=== PATIENT | male | born 1985 | race Caucasian/White ===

== ENCOUNTER 2019-08-14 12:24 | Emergency (ER) | payer OTHER ==
[~2019-08-14] VITALS: Ht 190.5 cm; Wt 125.2 kg
[2019-08-14 13:06] LABS: BASO % 0.3 % (0.0-1.0); EOS % 0.3 % (1.0-4.0); HEMATOCRIT 45.2 % (42.0-52.0); HEMOGLOBIN 15.1 g/dl (14.0-18.0); LYMPH # 3.1 10*3/uL (1.3-4.4); LYMPH % 25.9 % (27.0-41.0); MEAN CELL VOLUME 89.9 fl (80.0-94.0); MEAN CORPUSCULAR HGB CONC 33.4 g/dl (33.0-37.0); MEAN PLATELET VOLUME 9.6 fl (9.6-12.3); MONO # 0.9 10*3/uL (0.1-1.0); MONO % 7.2 % (3.0-9.0); NEUT # 7.9 10*3/uL (2.3-7.9); NEUT % 65.9 % (47.0-73.0); PLATELET COUNT AUTOMATED 318 10*3/uL (130-400); RED BLOOD COUNT 5.03 10*6/uL (4.50-5.90); RED CELL DISTRI WIDTH 13.2 % (0-14.5)
[2019-08-14 13:25] LABS: ALBUMIN 4.1 gm/dl (3.1-4.5); ALKALINE PHOSPHATASE 49 U/L (45-117); BUN 16 mg/dl (7-24); CHLORIDE 108 mmol/L (98-107); CREATININE 1.15 mg/dL (0.70-1.30); SGOT/AST 19 IU/L (3-35); SGPT/ALT 33 U/L (12-78); SODIUM 140 mmol/L (136-145); TOTAL PROTEIN 8.1 gm/dL (6.4-8.2)
[2019-08-14 13:26] LABS: TROPONIN I < 0.015 ng/ml (<0.045)
== END 2019-08-14 15:15 ==
LOC: ED 12:24
PROVIDERS: Physician Assistant
DX: H53.2 Diplopia (principal)